=== PATIENT | female | born 1990 | race Asian ===

== ENCOUNTER 2021-11-27 14:32 | Outpatient (CLI) | payer BC, SELFPAY ==
--- NOTE | ~2021-11-27 | US_ITS ---
EXAMINATION: US OB <=14 wk fetus w TV DATE: 11/27/2021 15:58 INDICATION: Threatened TECHNIQUE: Real-time pelvic transabdominal and transvaginal ultrasound was performed. COMPARISON: None. FINDINGS: The uterus measures 7.6 x 4.0 x 4.2 cm. No definite intrauterine gestational sac is identi fied. There is a 2 mm endometrial fluid collection of unclear significance, possible early gestationa l sac. The endometrial thickness is 1.5 cm. The right ovary measures 2.8 x 1.9 x 2.1 cm. The left ova ry measures 3.1 x 1.4 x 1.6 cm. There is normal vascular flow in the ovaries. There is a small amount of free fluid in the pelvis. IMPRESSION: 1. of unknown location. Although no definite intrauterine gestational sac is seen, this may be due to early gestation. If the patient is clinically stable, recommend followup with serial beta- hCG and ultrasound. Reviewed, dictated and finalized at location B. ESSING CLERK IMPRESSION: 1. of unknown location. Although no definite intrauterine gestational sac is seen, this may be due to early gestation. If the patient is clinically stable, recommend followup with serial beta-hCG and ultrasound.
== END 2021-11-27 14:33 | disposition home or self-care (01) ==
LOC: ANHIMG 14:34
PROVIDERS: Visit Provider Nurse Practitioner Family
DX: O20.0 Threatened abortion (principal); Z3A.00 Weeks of gestation of pregnancy not specified
CPT/HCPCS: 76801; 76817

== ENCOUNTER 2022-07-25 05:34 | Inpatient (IN) | payer OTHER, SELFPAY ==
[2022-07-25] VITALS (10 sets, daily range): BP systolic 108–133; BP diastolic 64–79; PULSE 72–96; RESP 16–18; TEMP 36.5–37.1; O2SAT 98–100; BMI 23.1
--- NOTE | 2022-07-25 05:34 | LDADM ---
This patient, Julissa Ahmadi, was admitted to Labor/Delivery/Recovery 106 on 07/25/22 at 05:34. Plans for labor, pain management and were discussed with patient. Patient/family oriented to hospital policies and general routines including ID bracelet, bed and alarms, visiting hours, pain management, procedures, bathroom and other care routines, personal items, smoking policy, room service/diet and guest tray routines, infant security routines, and visiting hours. Patient/Family are encouraged to report perceived risks to care and to ask questions if they do not understand what they are told or what they should do. See OBIX for further documentation.
--- OUTSIDE RECORDS SUMMARY | 2022-07-25 06:51 | XMS_ITS ---
:1990 Author Care Team Providers Name Role Phone TAYLOR PHILLIPS CHASE Primary Care Provider [phone] Allergies Code Code System Name Reaction Severity Status Onset NKDA ? Medications Name Status Start Date Stop Date ? ? clomiphene citrate 50 mg tablet Completed ? 07/17/2021 Linzess 290 mcg capsule Completed ? 11/28/19 medroxyprogesterone 10 mg tablet Completed ? 07/17/2021 TAKE 1 TABLET BY MOUTH EVERY DAY FOR 10 DAYS 28 mg iron-800 mcg tablet Active ? Not available Take 1 tablet every day by oral route. Problems Name Status Onset Date Source ? Active 11/27/2021 ? Chronic Constipation Active ? ? Irritable Bowel Syndrome Active ? ? Stomach Cramps Active ? ? Procedures Date Name Performed by ? 08/28/2021 US, Pelvis, Transabdominal + Transvagina l Information not available 11/27/2021 US, Obstetric, 1St Trimester [facility] [address] [place] [address] (Work Place) 12/02/2021 US, Obstetric, 1St Trimester [facility] [address] [place] [address] (Work Place) Notes: none Results Lab Results Date Name Specimen Result Interpretation Description Value Range Status Address ? 11/29/2021 High Human 3763.60 0.00-4.82 Final Lowman Test, Serum Chorionic mIU/mL mIU/mL Re gional or Plasma Gonadotropin
[2022-07-25 07:28] LABS: Basophils Absolute Auto 0.1 K/mm3 (0.0-0.1); Basophils Percent Auto 0.4 % (0.2-1.2); Eosinophils Absolute Auto 0.2 K/mm3 (0-0.3); Eosinophils Percent Auto 1.6 % (0-4.4); Hematocrit 41.4 % (37.0-47.0); Hemoglobin 13.7 g/dL (12.0-15.0); Immature Granulocyte Absolute 0.14 K/mm3 (0.00-0.031); Lymphocytes Absolute Auto 2.08 K/mm3 (0.9-3.2); Lymphocytes Percent Auto 14.8 % (18.3-44.2); Mean Corpuscular HGB Conc 33.1 g/dl (32-36); Mean Corpuscular Hemoglobin 30.7 pg (26-34); Mean Corpuscular Volume 92.8 fl (80-100); Monocytes Absolute Auto 0.8 K/mm3 (0.1-0.6); Monocytes Percent Auto 5.9 % (2.6-8.5); Neutrophils Absolute Auto 10.7 K/mm3 (1.3-6.7); Neutrophils Percent Auto 76.3 % (45.5-73.1); Platelet Count Result 279 k/mm3 (150-375); Red Blood Count 4.46 M/mm3 (4.2-5.4)
[2022-07-25 08:25] LABS: HIV 1/2 Ab P24 Ag Result Negative (Negative)
--- NOTE | 2022-07-25 09:03 | WPDHPUPDATE1 ---
History and Physical Update Update Date/Time: 07/25/22 08:52 History and Physical has been reviewed, including an updated exam of the patient. There are NO changes in the patient's condition. Risks, benefits, and alternatives have been discussed and questions answered. Patient agrees to proceed with procedure. Julissa is a 31yo @ 38.5wks who presented in labor FHT's: 130's/mod shey/ + accels/ no decels - cat 1 TOCO: ctx's q2-4min Cervix: 5/100/0 Membranes: AROM, clear @ 0900 Presentation: cephalic Admit for labor; AROM performed, if contractions space out, would start low dose pitocin Continuous monitoring GBS negative Anesthesia consult PRN pain
[2022-07-25] MEDS: LACTATED RINGERS 1,000 ML 125 ML IV CONT (11:00)
[2022-07-25] MEDS: OXYTOCIN 30 UNITS/NS 500 ML 30 UNITS/500 ML BAG 999 UNITS IV CONT (11:35)
--- NOTE | 2022-07-25 12:09 | PM.OBPRVD ---
OB - Delivery Note Procedure Delivery date: 07/25/22 Delivery augmentation: Rupture of Membranes Delivery monitor: External FHT and External Uterine Route of delivery: Laceration Description: Perineal - 2nd Degree Delivery repair: vicryl Quantitative Blood Loss (ml): 200 Anesthesia type: Local (20cc of lidocaine w/o epi) Disposition: Floor Baby Date of : 07/25/22 Time of : 11:33 Weeks of gestation at delivery: 38 (.5) gender: Female Weight (pounds): 6 Weight (ounces): 14 presentation: vertex position: Left Occiput Anterior Placenta delivery description: Expressed Cord Vessel Description: 3 Vessels and Delayed Cord Clamping score one minute: 9 score five minutes: 9 Narrative: Julissa rapidly progressed to complete dilation. She pushed with good maternal effort for approximately one hour and 15 minutes. She delivered the head over intact perineum. She easily delivered the 's shoulders and body without complication. The infant was immediately placed skin to skin and had spontaneous cry. The mouth and nose were bulb suctioned. Delayed cord clamping was performed. The umbilical cord was then clamped and cut. A segment of cord was collected for cord gases. The remaining cord blood was collected for typing. With Pitocin running and gentle downward traction on the cord, the placenta delivered without complications. Bimanual massage revealed firm uterus with minimal bleeding. She was examined and a second-degree perineal laceration was noted. The laceration was repaired in the normal fashion using 2-0 Vicryl. Bimanual massage was once again performed with good uterine tone, however a small piece of membranes was palpated and removed using ring forceps. Minimal bleeding was noted. Sponge, lap, instrument, and needle counts were correct. Mom and baby were left bonding in the birthing suite in a stable condition. [facility] Delivery Billing Delivery Delivery: Delivery Charge
[2022-07-25] MEDS: IBUPROFEN 600 MG TABLET PO (14:05)
[2022-07-25] MEDS: BENZOCAINE 20% AER SPR (*SP) 56 GM CAN 1 SPRAY TOPICAL (14:16)
[2022-07-25] MEDS: WITCH HAZEL 40 PADS 1 PAD TOPICAL (14:17)
--- NOTE | 2022-07-25 14:26 | PC.NURSE ---
Patient transferred to post room #290 via wheelchair. Support person present. Oriented to unit, room, information board, rooming in, admission packet and security measures. Patient verbalizes understanding.
[2022-07-25] MEDS: ACETAMINOPHEN 325 MG TABLET 650 MG PO (19:00)
[2022-07-26 00:10] VITALS: BP 115/71; PULSE 68; RESP 16; TEMP 36.6; O2SAT 99
[2022-07-26] MEDS: IBUPROFEN 600 MG TABLET PO ×2 (00:38→09:22)
[2022-07-26 04:55] VITALS: BP 109/65; PULSE 65; RESP 16; TEMP 36.6; O2SAT 100
[2022-07-26] MEDS: ACETAMINOPHEN 325 MG TABLET 650 MG PO (05:01)
[2022-07-26 05:06] LABS: Hemoglobin 11.9 g/dL (12.0-15.0)
[2022-07-26 09:23] VITALS: BP 104/56; PULSE 69; RESP 16; TEMP 36.7; O2SAT 97
[2022-07-26] MEDS: DOCUSATE SODIUM 100 MG CAPSULE PO (09:23)
[2022-07-26] MEDS: MULTIVIT/MIN/PREN/FOL AC/IRON TABLET 1 TAB PO (09:23)
--- NOTE | 2022-07-26 10:31 | PM.OBPNVD ---
OB - PN: Subj Subjective Date/time seen: 07/26/22 10:31 Patient comments: no complaints and pain well controlled baby status: doing well OB - PN: Obj Data Labs CBC & Chem 7: 07/26/22 04:57 Labs: Laboratory Results - last 24 hr 07/26/22 04:57 Hgb 11.9 L Hct 36.0 L OB - PN A/P Plan day: 1 Plan: routine care Time Spent With Patient Time: Total time spent is greater than 50% in coordination of care (as documented) at patient's floor/unit and/or counseling patient: Exam : Bimanual exam- vagina & uterus: other (Uterus firm, nt @U)
[2022-07-26 19:20] VITALS: BP 102/58; PULSE 71; RESP 16; TEMP 36.4; O2SAT 100
--- NOTE | 2022-07-27 01:41 | PC.NURSE ---
Daylight Savings Time For Daylight Savings Time Ending in the Fall - Clocks are moved back. For [facility], the time of change occurs at 0200 hrs. Time is taken from the cocktail server. This entry on the patient's chart recognizes the change in time reflected during documentation. Example: 2 entries for vital signs may be charted for 0200 hrs.
[2022-07-27] MEDS: IBUPROFEN 600 MG TABLET PO (08:34)
[2022-07-27] MEDS: DOCUSATE SODIUM 100 MG CAPSULE PO (08:35)
[2022-07-27] MEDS: MULTIVIT/MIN/PREN/FOL AC/IRON TABLET 1 TAB PO (08:35)
[2022-07-27] MEDS: TETANUS,DIPHTHERIA,AC PERTUSSIS ADULT (0.5 ML) BOOSTRIX IM (08:37)
[2022-07-27 08:40] VITALS: BP 107/70; PULSE 60; RESP 16; TEMP 36.1; O2SAT 100
--- NOTE | 2022-07-27 09:30 | PM.OBPNVD ---
OB - PN: Subj Subjective Date/time seen: 07/27/22 09:30 Patient comments: no complaints and pain well controlled baby status: doing well and nursing well OB - PN: Obj Data Labs CBC & Chem 7: 07/26/22 04:57 OB - PN A/P Plan day: 2 Plan: routine care, discharge home and follow up 6 weeks Time Spent With Patient Time: Total time spent is greater than 50% in coordination of care (as documented) at patient's floor/unit and/or counseling patient: Exam : Bimanual exam- vagina & uterus: other (Uterus firm, nt @U)
--- NOTE | 2022-07-27 14:22 | PC.NURSE ---
1200 Used the Language Line to go over D/C Instructions with both parents. Both V/U'd.
[2022-07-28 12:13] LABS: Rapid Plasma Reagin Non-Reactive (NonReactive)
[2022-07-30 10:46] VITALS: BP 114/72; PULSE 76; RESP 16; TEMP 36.7; O2SAT 100
--- NOTE | 2022-07-30 14:00 | PM.OBDSVD ---
DS: Admitting Diagnosis Discharge Date 07/27/22 Admitting Diagnosis SROM Labor DS: Discharge Diagnosis Discharge Diagnosis (1) Normal vaginal delivery: Code(s): O80 - Encounter for full-term uncomplicated delivery Status: Acute OB - DS: Summary OB Procedures : Ultrasound OB Procedures Intrapartum: Spontaneous Vag Delivery OB Procedures: : None Peripartum Data Delivery Method: Natural Vaginal Laceration Description: Perineal - 2nd Degree complications: none Hewitt 1: Gender: Female Disposition of : home Status at Discharge Functional status at discharge: independent ambulation Overall status at discharge: patient is back to baseline Time Spent with Patient Time attestation: Total time spent providing and/or coordinating discharge services: Time spent: Less than 30 minutes Exam Const: General: cooperative, comfortable and no acute distress Orientation/consciousness: patient oriented x3 Resp: Effort & Inspection: normal respiratory effort Auscultation: clear to auscultation bilaterally Cardio: Rate: regular rate GI: Inspection: non-distended GI Palp: No abdominal tenderness and Yes Soft to palpation Auscultation: normal bowel sounds : Other: fundus firm Skin: General skin exam: normal color Neuro: General: patient oriented x3 Extrem: General: normal to inspection Psych: Appearance: grossly normal Affect: normal affect Attitude: cooperative Discharge Plan Discharge Attending physician on discharge: Ana Maria Avery Discharging Clinician: Giovanna Middleton Anticipated Discharge Date/Time: 07/27/22 09:31 Patient Disposition: Home, Self-Care Activity: may shower and pelvic rest Diet: regular Discharge Instructions: Education: Mom and Baby Guide Given to: Mother Follow-Up: Call your delivering provider's office for an appointment to be seen in: 4 Weeks Mom and baby should come to the [facility] for the follow-up appointment. Appointment Date/Time: Saturday, July 30, 2022 at 10:00 am What to expect at your follow-up visit: Physical Assessment Call [phone] if you are unable to keep your appointment time. BREAST CARE: * Wear a snug supportive bra. * For engorgement discomfort: Breast Feeding: * Apply warm moist washcloths * Express milk as needed to relieve engorgement * Wear loose clothing Bottle Feeding: * May apply ice packs * For sore nipples: * Identify correct latch-on * Apply warm moist washcloths before and after nursing * Air dry nipples after nursing * May apply Lansinoh cream to nipples EPISIOTOMY/PERINEAL CARE: * Until bleeding stops, use your corina bottle after urinating * Change your pad frequently throughout the day * You may take sitz baths several times a day (fill your bathtub with warm water and soak for 20 minutes.) Do NOT bathe in the water * No tub baths until seen by your physician - You may shower ACTIVITY: * Rest as much as possible. * Do not exercise or lift anything heavier than your baby (such as laundry or other children.) * Avoid stairs or driving as much as possible. * Do not put anything into the vagina. No douching, tampons, or sexual activity until seen by physician. NOTIFY PHYSICIAN IF YOU HAVE ANY QUESTIONS OR IF ANY OF THE FOLLOWING SYMPTOMS OCCUR: * If your episiotomy or incision becomes red, swollen, or more painful than what you have experienced in the hospital. * If your vaginal bleeding becomes foul smelling. * If your vaginal bleeding becomes more heavy than a period or if your bleeding changes from pink to bright red. However, you may pass an occasional walnut-sized clot once or twice for the first week . * If you experience a sharp, shooting pain in you calves. * If you discover a hard, reddened area on yo
== END 2022-07-27 13:20 | disposition home or self-care (01) | DRG 560 ==
LOC: ANHLDR 06:54 → ANHOB2 07-27 09:32 → ANHLDR 07-30 08:51 → ANHOB2 07-30 08:51
PROVIDERS: Admitting Provider Obstetrics & Gynecology; Visit Provider Obstetrics & Gynecology Gynecology
DX: O70.1 Second degree perineal laceration during delivery (principal); Z23 Encounter for immunization; Z37.0 Single live birth; Z3A.38 38 weeks gestation of pregnancy
CPT/HCPCS: 36415; 85014; 85018; 85025; 86592; 86703; 86850; 86900; 86901; 90471; 90686; 90715; A9270; G0008; G0432; J2590; J7120

== ENCOUNTER 2023-07-15 12:21 | Outpatient (CLI) | payer OTHER, SELFPAY ==
--- NOTE | ~2023-07-15 | MMUS_ITS ---
EXAMINATION: MM diagnostic brenda BI w irvin, US breast BI complete HISTORY: Left breast lump TECHNIQUE: Bilateral full field and spot left ML, MLO and CC 3-D tomosynthesis images were performed and synthetic 2-D images were generated. CAD analysis was submitted and interpreted. High resolution complete bilateral breast ultrasound examination including all 4 quadrants and subareolar areas was p erformed. COMPARISON: None BREAST PARENCHYMAL COMPOSITION: The breasts are extremely dense, which lowers the sensitivity of mamm ography. FINDINGS: MAMMOGRAPHIC FINDINGS: There are scattered bilateral benign-appearing calcifications, more numerous on the left No suspicious mass or architectural distortion, malignant calcification, skin thickening or retractio n is detected. The extremely dense stroma however may obscure masses in either breast. ULTRASOUND: Right breast: No suspicious mass or shadowing is detected Left breast: 12:00 4 cm from nipple: 2.3 mm cyst 9:00 near nipple: Parallel circumscribed hyperechoic solid 8 x 7 x 10 mm mass with through transmissi on posterior enhancement. The sonographic features are benign, with differential diagnosis of lipoma, hamartoma or fibroadenoma. No suspicious mass or shadowing is detected in the left breast. IMPRESSION: 1. Benign findings; no mammographic or sonographic evidence of malignancy 2. Routine annual mammographic screening beginning at age 40 is recommended BI-RADS Category 2: Benign finding(s). Reviewed, dictated and finalized at location A. IMPRESSION: 1. Benign findings; no mammographic or sonographic evidence of malignancy 2. Routine annual mammographic screening beginning at age 40 is recommended BI-RADS Category 2: Benign finding(s).
== END 2023-07-15 12:22 | disposition home or self-care (01) ==
LOC: ANHIMG 12:22
PROVIDERS: Visit Provider Obstetrics & Gynecology
DX: N63.20 Unspecified lump in the left breast, unspecified quadrant (principal); R92.8 Other abnormal and inconclusive findings on diagnostic imaging of breast
CPT/HCPCS: 76641; 77062; 77066; G0279

== ENCOUNTER 2024-10-19 13:17 | Outpatient (CLI) | payer OTHER, SELFPAY ==
--- NOTE | ~2024-10-19 | US_ITS ---
EXAMINATION: US OB <= 14 weeks fetus DATE: 10/19/2024 14:08 INDICATION: Amenorrhea. Positive test. TECHNIQUE: Real-time transabdominal and transvaginal pelvic ultrasound was performed. COMPARISON: None. FINDINGS: TRANSABDOMINAL ULTRASOUND: The uterus measures 15.6 x 10.0 x 11.4 cm. TRANSVAGINAL ULTRASOUND: There is an intrauterine gestational sac. The crown rump length measur es 8.5 cm, which correlates with an estimated gestational age of 14 weeks and 3 day(s) (+/-) 1 week(s ) and 2 day(s). heart motion is identified measuring 155 beats per minute (bpm) by M-mode Doppl er. The ovaries are not visualized. There is no free fluid in the pelvis. IMPRESSION: 1. Single living intrauterine gestation with estimated date of delivery of 04/16/2025. Reviewed, dictated and finalized at location A. HAT FLANGER IMPRESSION: 1. Single living intrauterine gestation with estimated date of delivery of 03/22.
--- OUTSIDE RECORDS SUMMARY | 2024-10-19 14:14 | XMS_ITS | Patient Health Summary ---
Author Organization [facility] Address [address] [place] [address] Care Team Providers Care Computer Network And Systems Engineer Name Role Phone Mattie Marcus MD Primary Care Provider [phone] Note from [facility],non-owned Affiliates and Associated Physician Practices is amultiple site organization consisting of ambulatory clinics and hospital sitesin [place], [place], [place]. This disclosure is being madepursuant to the Care Everywhere program and may not contain all information available regarding this patient. Last updated 18.[facility] Allergies No known active allergies Social History Tobacco Use Types Packs/Day Years Used Date Smoking Tobacco: Never Assessed Sex and Gender Information Value Date Recorded Sex Assigned at Not on file Gender Identity Not on file Sexual Orientation Not on file Procedures * SONOGRAM - COMPLETE(Performed 04/09/2022) Performed for Encounter for anatomic survey (HCC), 23 weeks gestation of (HCC), Abnormal chromosomal and genetic finding on screening mother Results * SONOGRAM - COMPLETE (04/09/2022 11:13 AM CDT) Anatomical Region Laterality Modality Other 04/09/2022 11:1 3 AM CDT Narrative 04/09/2022 12:47 PM CDT ? [facility] ?PHONE: ??FAX: Pat. Name: ?JULISSA DEAL Denisse. No: ?[id number] Study Date: ?? 04/09/2022 ??11:13am , Age: ? 1990, 31 Pregnancies: ?? 2, Para 0 Height: ? 65 in Weight: ? 109 lb LMP: ?10/26/2021 GA by LMP: ?23w4d GA by US: ? 23w4d ?? BALAJI: 08/02/2022 GA Selected: ??23w4d (LMP) BALAJI: ?08/02/2022 Referring MD: Ana Maria Avery MD Nematologist: ??Adriana Feliz RDMS CPT4: ? [id number] BMI: ?18.14 Hist/Ind: ? Anatomy Screen ?Quad Screen + DS ?LR NIPT MEASUREMENTS & AGE ? GROWTH EVALUATION Measurement ??GA ? Range ? Srce %for GA Ratios ----- ---- ------- BPD ??6.0 cm 24w3d (92j6d-41y2d) Hadl BPD 74% FL/BPD 0.67 (0.71 - 0.87* HC ??21.1 cm 23w1d (69k4l-70c1y) Hadl HC ??17% FL/AC ??0.21 (0.20 - 0.24) AC ??19.0 cm 23w5d (26w6t-87s6l) Hadl AC ??45% HC/AC ??1.11 (1.03 - 1.22) FL ?? 4.0 cm 23w0d (48s5d-95r0l) Hadl FL ??20% CI ? 0.82 (0.70 - 0.86) HL ?? 4.0 cm 24w1d (89i4h-09q7f) Eric HL ??60% GA for sonogram 23w4d (41t0z-22c2p) ?? Weight Estimate: based on (BPD,HC,AC,FL) Avg ?Weight: 592 gm (506-679gm) Hadloc ? : 1lbs, 4oz ? Normal: 630 gm (472-787gm) Hadloc ? Wt% ? 33% for 23w4d Cervix: ??Length: 3.8 cm ??Approach: transvaginal Heart Rate: 162 bpm Amniotic Fluid Index: 05.2cm (Deepest Pocket) EVAL, PLACENTA Presentation: cephalic Umbilical Cord: 3 Vessels Placenta: anterior Heart Rate: 162 bpm Amniotic Fluid Volume: normal Anatomy!Normal!Abnormal!Suboptimal!Prev. Seen!Comments Cranium ?! ?? x ??! ?! ?! ?! Mdl (CSP/Thal! ?? x ??! ?! ?! ?! Ventricles ?? ! ?? x ??! ?! ?! ?! Choroid Plexu! ?? x ??! ?! ?! ?! Cerebellum ?? ! ?? x ??! ?! ?! ?! Cerebellar Ve! ?? x ??! ?! ?! ?! Cisterna M. ??! ?? x ??! ?! ?! ?! Nuchal Fold ??! ?? x ??! ?! ?! ?! Orbits ? ! ?? x ??! ?! ?! ?! Profile ?! ?? x ??! ?! ?! ?! Nasal Bone ?? ! ?? x ??! ?! ?! ?! Lip ?! ?? x ??! ?! ?! ?! Maxilla ?! ?? x ??! ?! ?! ?! Mandible ? ! ?? x ??! ?! ?! ?! Neck ? ! ?? x ??! ?! ?! ?! Spine ?! ?? x ??! ?! ?! ?! Lungs ?! ?? x ??! ?! ?! ?! 4 Chamber Hea! ?? x ??! ?! ?! ?! LVOT ? ! ?? x ??! ?! ?! ?! RVOT ? ! ?? x ??! ?! ?! ?! 3 Vessel View! ?? x ??! ?! ?! ?! 3 Vessel Trac! ?? x ??! ?! ?! ?! Cross-over ?? ! ?? x ??! ?! ?! ?! Ductal Arch ??! ?? x ??! ?! ?! ?! Aortic Arch ??! ?? x ??! ?! ?! ?! Caval View ?? ! ?? x ??! ?! ?! ?! Situs ?! ?? x ??! ?! ?! ?! Diaphragm ?! ?? x ??! ?! ?! ?! Stomach ?! ?? x ??! ?! ?! ?! Liver ?! ?? x ??! ?! ?! ?! Bowel ?! ?? x ??! ?! ?! ?! Kidneys ?! ?? x ??! ?! ?! ?! Bladder ?! ?? x ??! ?! ?! ?! 3 Vessel Cord! ?? x ??! ?! ?! ?! Cord In! ?? x ??! ?! ?! ?! Upper Extremi! ?? x ??! ?! ?! ?! Hands ?! ?? x ??! ?! ?! ?! Lower Extremi! ?? x ??! ?! ?! ?! Feet ? ! ?? x ??! ?! ?! ?! External Ceci! ?? x ??! ?! ?! ?!Female Placental Cor! ?? x ??! ?! ?! ?! CLINICAL SUMMARY Study Number: 2 ?? A single fetus is seen in cephalic presentation. ??The measurements today are consistent with appropriate size for the BALAJI provided. ??The BALAJI is based on LMP and a prior ultrasound. ??The amniotic fluid volume is within normal limits. ?? IMPRESSION: Single, live intrauterine at 23w4d ?? size is consistent with established gestational age ?? Amniotic fluid volume: within normal limits ?? Reassuring transvaginal cervical length ?? No major malformations were seen within the limitations of ultrasound RECOMMEND: Ultrasound as clinically indicated Thank you for allowing us the opportunity to care for your patient Hermann Zhu MD <Electronic Signature> ??04/09/2022 12:47pm Ana Maria Avery MD [facility] ORDERABLES Care Teams Computer Network And Systems Engineer Relationship Specialty Start Date End Date Mattie Marcus MD [address] [place] [address] PCP - General Internal Medicine 12/20/19
--- OUTSIDE RECORDS SUMMARY | 2024-10-19 14:14 | XMS_ITS | Clinical Summary ---
Author Organization [facility] Address [address] [place] [address] Care Team Providers Care Bottom Man Name Role Phone Mattie Marcus MD Primary Care Provider [phone] Source Comments [facility],non-owned Affiliates and Associated Physician Practices is amultiple site organization consisting of ambulatory clinics and hospital sitesin [place], [place], [place] and [place]. This disclosure is being madepursuant to the Care Everywhere program and may not contain all information available regarding this patient. Last updated 18.[facility] Allergies No known active allergies Social History Tobacco Use Types Packs/Day Years Used Date Smoking Tobacco: Never Assessed Sex and Gender Information Value Date Recorded Sex Assigned at Not on file Gender Identity Not on file Sexual Orientation Not on file Plan of Treatment Health Maintenance Due Date Last Done Comments PAP SMEAR 1989 HIV SCREENING 2004 HEPATITIS C SCREENING 09/17/2007 DTAP/TDAP/TD VACCINES (1 - Tdap) 2008 HEPATITIS B VACCINE (1 of 3 - 19+ 3-dose series) 2008 COVID-19 VACCINE ( - 2023-2 5 season) 2024 INFLUENZA VACCINE (#1) 2024 DEPRESSION SCREENING 2024 ZOSTER VACCINE (1 of 2) 2039 HIB VACCINE Aged Out No longer eligi ble based on patient's age to complete this topic HPV VACCINE Aged Out No longer eligi ble based on patient's age to complete this topic MENINGOCOCCAL (Group B) VACCINE Aged Out No longer eligible based on patient's age to complete this topic MENINGOCOCCAL VACCINE Aged Out No sumit marty eligible based on patient's age to complete this topic PNEUMOCOCCAL VACCINE Aged Out No long er eligible based on patient's age to complete this topic Care Teams Bottom Man Relationship Specialty Start Date End Date Mattie Marcus MD [address] [place] [address] PCP - General Internal Medicine 12/20/19
--- OUTSIDE RECORDS SUMMARY | 2024-10-19 14:14 | XMS_ITS | Referral Summary ---
Author Organization [facility] Address [address] [place] [address] Care Team Providers Care Cut Off Worker Name Role Phone Mattie Marcus MD Primary Care Provider [phone] Source Comments [facility],non-owned Affiliates and Associated Physician Practices is amultiple site organization consisting of ambulatory clinics and hospital sitesin [place], [place], [place] and [place]. This disclosure is being madepursuant to the Care Everywhere program and may not contain all information available regarding this patient. Last updated 18.[facility] [employer] Allergies No known active allergies Social History Tobacco Use Types Packs/Day Years Used Date Smoking Tobacco: Never Assessed Sex and Gender Information Value Date Recorded Sex Assigned at Not on file Gender Identity Not on file Sexual Orientation Not on file Plan of Treatment Not on file Care Teams Cut Off Worker Relationship Specialty Start Date End Date Mattie Marcus MD [address] [place] [address] PCP - General Internal Medicine 12/20/19
== END 2024-10-19 13:18 | disposition home or self-care (01) ==
PROVIDERS: Visit Provider Obstetrics & Gynecology
DX: N91.2 Amenorrhea, unspecified (principal)
CPT/HCPCS: 76801

== ENCOUNTER 2025-03-30 10:08 | Inpatient (IN) | payer OTHER, SELFPAY ==
[2025-03-30] VITALS (39 sets, daily range): BP systolic 84–146; BP diastolic 56–85; PULSE 72–122; RESP 14–16; TEMP 36.6–37.3; O2SAT 98; BMI 24.5
--- OUTSIDE RECORDS SUMMARY | 2025-03-30 10:19 | XMS_ITS | Clinical Summary ---
Author Organization [facility] Address [address] [place] [address] Care Team Providers Care Meat Team Lead Name Role Phone Mattie Marcus MD Primary Care Provider [phone] Source Comments [facility],non-owned Affiliates and Associated Physician Practices is amultiple site organization consisting of ambulatory clinics and hospital sitesin [place], [place], [place] and [place]. This disclosure is being madepursuant to the Care Everywhere program and may not contain all information available regarding this patient. Last updated 18.[facility] [employer] Allergies No known active allergies Medications * Be aware that medications may not be up to date on this document. Alwaysverify current medications with the patient. Vit-DSS-Fe Fum-FA ( vitamin with iron) tablet Take 1 (one) tablet by mouth once daily Active Active Problems Problem Noted Date Diagnosed Date Encounter for anatomic survey 11/30/2024 AMA (advanced maternal age) multigravida 35+, second trimester 11/30/2024 Estimated Date of Delivery Comme nts Yes 04/14/2025 Based on last me nstrual period of 07/08/2024 Encounters Date Type Department Care Team Description 03/17/2025 7:24 AM CDT - 03/17/2025 11:59 PM CDT Hospital Encounter [facility] Women's Health Maternal & Care [address] [place] [id number] Sandrine Martinez MD Discharge Disposition: Home or Self Care 02/17/2025 7:16 AM CDT - 02/17/2025 11:59 PM CDT Hospital Encounter [facility] & [facility] [address] [place] [address] Foreign Mehta MD Discharge Disposition: Home or Self Care 01/16/2025 7:30 AM CDT - 01/16/2025 11:59 PM CDT Hospital Encounter [facility] [address] [place] [phone] Head, MD Gardenia Sandoval Debra A, MD Discharge Disposition: Home or Self Care from Last 3 Months Social History Tobacco Use Types Packs/Day Years Used Date Smoking Tobacco: Never Smokeless Tobacco: Never Tobacco Cessation:Counseling Given: Not Answered Alcohol Use Standard Drinks/Week Comments Never 0 (1 standard drink = 0.6 oz pur e alcohol) Estimated Date of Delivery Comme nts Yes 04/14/2025 Based on last me nstrual period of 07/08/2024 Sex and Gender Information Value Date Recorded Sex Assigned at Not on file Legal Sex Female 1:52 PM CDT Gender Identity Not on file Sexual Orientation Not on file Last Filed Vital Signs Vital Sign Reading Time Taken Comments Blood Pressure 105/69 11/30/2024 8:42 AM CDT Pulse 72 11/30/2024 8:42 AM CDT Temperature - - Respiratory Rate - - Oxygen Saturation - - Inhaled Oxygen Concentration - - Weight 55.8 kg (123 lb) 11/30/2024 8:42 AM CDT Height - - Body Mass Index - - Plan of Treatment Health Maintenance Due Date Last Done Comments HIV SCREENING 2004 HEPATITIS C SCREENING 09/17/2007 DTAP/TDAP/TD VACCINES (1 - Tdap) 2008 HEPATITIS B VACCINE (1 of 3 - 19+ 3-dose series) 2008 PAP SMEAR 2010 COVID-19 VACCINE (2023-2 5 season) 2024 DEPRESSION SCREENING 2024 OB-ONE HOUR GLUCOSE 01/06/2025 OB-TDAP CURRENT 01/13/2025 OB-RHOGAM INJECTION 01/20/2025 OB-GROUP B STREP SCREEN 03/10/2025 INFLUENZA VACCINE (#1) 2025 ZOSTER VACCINE (1 of 2) 2039 HIB VACCINE Aged Out No longer eligi ble based on patient's age to complete this topic HPV VACCINE Aged Out No longer eligi ble based on patient's age to complete this topic MENINGOCOCCAL (Group B) VACC INE SHARED DECISION-MAKING Aged Out No longer eligibl e based on patient's age to complete this topic MENINGOCOCCAL GROUPS A/C/Y/W VACCINE Aged Out No longer eligible b ased on patient's age to complete this topic PNEUMOCOCCAL VACCINE Aged Out No long er eligible based on patient's age to complete this topic Respiratory Syncytial Virus (RSV) Vaccine Pt: or over 60 yrs (No Doses Required) Completed Procedures Procedure Name Priority Date/Time Associated Diagnosis Comments SONOGRAM - COMPLETE Routine 03/17/2025 7:27 AM CDT AMA (advanced maternal age) multigravida 35+, second trimester (HCC) Encounter for ultrasound to assess growth (HCC) 35 weeks gestation of (HCC) SONOGRAM - COMPLETE Routine 02/17/2025 7:25 AM CDT Encounter for anatomic survey (HCC) AMA (advanced maternal age) multigravida 35+, second trimester (HCC) 20 weeks gestation of (HCC) SONOGRAM - COMPLETE Routine 01/16/2025 7:40 AM CDT Encounter for anatomic survey (HCC) AMA (advanced maternal age) multigravida 35+, second trimester (HCC) 20 weeks gestation of (HCC) from Last 3 Months Results * Sonogram - Complete (03/17/2025 7:27 AM CDT) Only the most recent of3 resultswithin the time period is included. Linked Results Indication ======== Anatomy Screen Completed AMA History ====== OB History 2. Para 1 [id number] 1. live 2021. Gest. age 38 w + 5 d. Weight 2,721 g. Sex of child: female. Details: Vaginal delivery Lab Tests Test Date Result NIPT Low risk, Male Maternal Assessment Physical Exam Height 165 cm, 5 ft 5 in. Weight 65 kg, 144 lb. Initial weight 52 kg, 114 lb. BMI 23.96 kg/m . Initial BMI 18.97 kg/m . Weight gain 14 kg, 30 lb Method ====== Transabdominal ultrasound. View: Sufficient ========= Mejia . Number of fetuses: 1 Dating ====== Date Details Gest. age BALAJI LMP 07/08/2024 36 w + 0 d 04/14/2025 Stated BALAJI 36 w + 0 d 04/14/2025 U/S 03/17/2025 based upon AC, BPD, Femur, HC 37 w + 2 d 04/05/2025 Assigned dating based on the LMP, selected on 11/30/2024 36 w + 0 d 04/14/2025 General Evaluation Cardiac activity present. FHR 141 bpm. Presentation: cephalic Placenta: Placental site: anterior Amniotic fluid: Amount of AF: normal. MVP 8.7 cm. TAIWO 20.2 cm. Q1 8.7 cm, Q2 1.4 cm, Q3 4.6 cm, Q4 5.5 cm Biometry BPD 92.6 mm 37w 4d 92% Hadlock HC 334.8 mm 38w 2d 75% Hadlock AC 329.8 mm 36w 6d 83% Hadlock Femur 71.2 mm 36w 3d 58% Hadlock Humerus 62.0 mm 35w 6d 66% Nelia HC / AC 1.02 Weight Calculation: EFW 3,097 g 78% Hadlock EFW (lb,oz) 6 lb 13 oz EFW by Hadlock ([id number]) appropriate Growth Overview Exam date GA BPD (mm) HC (mm) AC (mm) FL (mm) HL (mm) EFW (g) 11/30/2024 20w 5d 48.5 47% 182.3 37% 162.7 65% 32.8 26% 34.4 82% 379 50% 01/16/2025 27w 3d 70.4 67% 256.3 34% 237.2 61% 53.4 63% 48.9 80% 1179 65% 02/17/2025 32w 0d 81.8 68% 309.5 80% 285.1 65% 62 40% 56.7 76% 2020 60% 03/17/2025 36w 0d 92.6 92% 334.8 75% 329.8 83% 71.2 58% 62 66% 3097 78% Anatomy The following structures appear normal: Abdomen Stomach. Kidneys. Bladder. sex: male. Impression ========= Single, live, intrauterine at 36w 0d The size is appropriate. - interval growth is appropriate. The amniotic fluid volume is normal. No major malformations were seen within the limits of ultrasound. Comment ======== ultrasound alone cannot detect all structural, genetic, or functional , placental, or maternal abnormalities Follow-up ======== Follow up as clinically indicated. Coding ====== Procedures 65091: US Preg Uterus Follow Up [employer] PACS Anatomical Region Laterality Modality Other 03/17/2025 7:27 AM CDT Ana Maria Avery MD [facility] ORDERABLES Edited Result - Final from Last 3 Months Insurance [facility]TER [facility] Care Teams Meat Team Lead Relationship Specialty Start Date End Date Mattie Marcus MD [address] [place] [id number] PCP - General Internal Medicine 12/20/19
--- OUTSIDE RECORDS SUMMARY | 2025-03-30 11:07 | XMS_ITS | Clinical Summary ---
Author Organization [facility] Address [address] [place] [address] Care Team Providers Care Reinforcing Steel Machine Operator Name Role Phone Mattie Marcus MD Primary Care Provider [phone] Source Comments [facility],non-owned Affiliates and Associated Physician Practices is amultiple site organization consisting of ambulatory clinics and hospital sitesin [place], [place], [place] and [place]. This disclosure is being madepursuant to the Care Everywhere program and may not contain all information available regarding this patient. Last updated 18.[facility] [employer] Allergies No known active allergies Medications * [...] - 03/17/2025 11:59 PM CDT Hospital Encounter [facility] Women's Health Maternal & Care [address] [place] [id number] Sandrine Martinez MD Discharge Disposition: Home or Self Care 02/17/2025 7:16 AM CDT - 02/17/2025 11:59 PM CDT Hospital Encounter [facility] M[facility] & [facility] [address] [place] [address] Foreign Mehta MD Discharge Disposition: Home or Self Care 01/16/2025 7:30 AM CDT - 01/16/2025 11:59 PM CDT Hospital Encounter [facility] M[facility] & Care [address] [place] [phone] Head, MD Gardenia Sandoval Debra A, MD [...] History ====== OB History 2. Para 1 [id number] 1. live 2021. Gest. age 38 w [...] 6 lb 13 oz EFW by Hadlock ([id number]) appropriate Growth Overview Exam date GA BPD [...] up as clinically indicated. Coding ====== Procedures 50520: US Preg Uterus Follow Up [employer] PACS Anatomical Region Laterality Modality Other 03/17/2025 7:27 AM CDT Ana Maria Avery MD [facility] ORDERABLES Edited Result - Final from Last 3 Months Insurance [facility]TER [facility] Care Teams Reinforcing Steel Machine Operator Relationship Specialty Start Date End Date Mattie Marcus MD [address] [place] [id number] PCP - General Internal Medicine 12/20/19
--- NOTE | 2025-03-30 11:51 | P.HP_ITS ---
H&P: HPI History of Present Illness Date/Time: 03/30/25 11:51 Chief Complaint: contractions Narrative: Julissa is a 34yo @ 37.4wks who presented to L&D with active contractions. She has had regular care and at her visit this week was found to be 5cm; was 6cm on arrival and ana maria regularly. She is wanting an epidural. She denies any VB or LOF. Her is complicated by: - Georgian speaking - AMA; MFM referral, nipt pending - GBS + will need abx @ delivery Review of Systems Constitutional: Constitutional: Denies chills, Denies fever(s) and Denies headache(s) Eyes: Eyes: Denies change in vision ENT: Denies headache(s) Cardiovascular: Cardiovascular: Denies chest pain and Denies dyspnea Respiratory: Respiratory: Denies dyspnea Gastrointestinal: Gastrointestinal: Reports abdominal pain Genitourinary: Genitourinary: Denies abnormal vaginal bleeding, Reports pelvic pain and Denies vaginal discharge Neurologic: Denies headache(s) Psychiatric: Psychiatric: Denies anxiety and Denies depression [facility] Family History Family History Other Patient denies significant medical history Social History Social History Smoking status: Never smoker Second hand tobacco smoke exposure: No Alcohol intake: never Substance use: never Substance use type: does not use Do You Feel Safe in your Home?: Yes Lack of Transportation: No Lack of Food: Never True Current Housing: I Have Housing Concerned About Future Housing: No Difficulty Paying Gas/Electric Bills: No Difficulty Paying for Meds: No Currently Unemployed: No Education: High School Diploma/GED Difficulty w/ Childcare or Family Care: No Living arrangements: with family Occupation/Education: occupation Gender identity (if verbalized by the patient): Female Sexual Orientation (if Verbalized by the Patient): Straight or Heterosexual Spiritual care concerns: No Meds Home Medications and Allergies Home Medications ?Medication ?Instructions ?Recorded ?Confirmed ?Type vit 168-iron 27 mg-folic 1 cap PO DAILY 12/26/21 03/28/25 History acid 800 mcg-omega3 235 mg capsule (One-A-Day -1) Allergies Allergy/AdvReac Type Severity Reaction Status Date / Time No Known Allergies Allergy Verified 03/28/25 08:03 Exam Const: General: cooperative, no acute distress and obese Nutritional A ppearance: obese Orientation/consciousness: patient oriented x3 Resp: Effort & Inspection: normal respiratory effort Cardio: Rate: regular rate GI: GI Palp: No abdominal tenderness : Other: FHT's: 140's/ mod shey/ + accels/ no decels - cat 1 TOCO: ctxs q4-7min Cervix: 6/80/-2 Membranes: intact Presentation: cephalic Skin: General skin exam: normal color Neuro: General: patient oriented x3 Extrem: General: normal to inspection Psych: Appearance: grossly normal Affect: normal affect Attitude: cooperative Assessment and Plan Assessment and plan (1) Active labor at term: Status: Acute Plan - Admitted in labor - Low dose pitocin per protocol if contractions space out - Continuous monitoring - GBS positive; ampicillin - Anesthesia consult for pain
[2025-03-30 12:22] LABS: Hematocrit 40.7 % (37.0-47.0); Hemoglobin 12.9 g/dL (12.0-15.0); Immature Granulocyte Percent A 0.6 % (0-0.5); Lymphocytes Absolute Auto 1.84 K/mm3 (0.9-3.2); Mean Corpuscular HGB Conc 31.7 g/dl (32-36); Mean Corpuscular Hemoglobin 28.4 pg (26-34); Mean Corpuscular Volume 89.5 fl (80-100); Nucleated Red Blood Cells Absolute Auto 0.000 K/mm3 (0.0-0.012); Nucleated Red Blood Cells Perc 0.0 % (0.0-0.2); Platelet Count Result 361 k/mm3 (150-375); Red Blood Count 4.55 M/mm3 (4.2-5.4); White Blood Count 10.8 K/mm3 (4.5-10.0)
[2025-03-30] MEDS: LACTATED RINGERS 1,000 ML 125 ML IV CONT ×2 (12:31→19:17)
[2025-03-30] MEDS: AMPICILLIN SODIUM 2 GM in SODIUM CHLORIDE 0.9% IV 100 ML 200 ML IVPB (12:33)
--- NOTE | 2025-03-30 12:51 | P.PNAN_ITS ---
Anes - Eval Pre Procedure Procedure: Labor epidural Date/Time: 03/30/25 12:51 Surgeon: Bennie Preop Diagnosis: Pain during labor Pre Op Diagnosis: Labor Patient Data Age: 34 Gender: F Height: Weight: Last Vital Signs Pulse 80 03/30/25 12:45 BP 103/66 03/30/25 12:45 Allergies Allergy/AdvReac Type Severity Reaction Status Date / Time No Known Allergies Allergy Verified 03/28/25 08:03 Home Medications ?Medication ?Instructions ?Recorded ?Confirmed ?Type vit 168-iron 27 mg-folic 1 cap PO DAILY 12/26/21 03/28/25 History acid 800 mcg-omega3 235 mg capsule (One-A-Day -1) Laboratory Tests 03/30/25 12:12 WBC 10.8 H K/mm3 (4.5-10.0) RBC 4.55 M/mm3 (4.2-5.4) Hgb 12.9 g/dL (12.0-15.0) Hct 40.7 % (37.0-47.0) MCV 89.5 fl (80-100) MCH 28.4 pg (26-34) MCHC 31.7 L g/dl (32-36) RDW 15.2 H % (11.5-14.5) Plt Count 361 k/mm3 (150-375) MPV 9.5 fl (7.4-10.4) Immature Gran % (Auto) 0.6 H % (0-0.5) Neut % (Auto) 76.2 H % (45.5-73.1) Lymph % (Auto) 17.0 L % (18.3-44.2) [place] % (Auto) 5.4 % (2.6-8.5) Eos % (Auto) 0.4 % (0-4.4) Baso % (Auto) 0.4 % (0.2-1.2) Lymph # (Auto) 1.84 K/mm3 (0.9-3.2) [place] # (Auto) 0.6 K/mm3 (0.1-0.6) Eos # (Auto) 0.0 K/mm3 (0-0.3) Baso # (Auto) 0.0 K/mm3 (0.0-0.1) Abs Immat Gran (auto) 0.07 H K/mm3 (0.00-0.031) Absolute Neuts (auto) 8.3 H K/mm3 (1.3-6.7) Absolute Nucleated RBC 0.000 K/mm3 (0.0-0.012) Nucleated RBC % 0.0 % (0.0-0.2) Patient hx anesthesia problems: none Family hx anesthesia problems: none Results Review: All pre-operative results and documents have been reviewed as part of the pre- operative evaluation. [facility] Family History Family History Other Patient denies significant medical history Social History Social History Smoking status: Never smoker Second hand tobacco smoke exposure: No Alcohol intake: never Substance use: never Substance use type: does not use Do You Feel Safe in your Home?: Yes Lack of Transportation: No Lack of Food: Never True Current Housing: I Have Housing Concerned About Future Housing: No Difficulty Paying Gas/Electric Bills: No Difficulty Paying for Meds: No Currently Unemployed: No Education: High School Diploma/GED Difficulty w/ Childcare or Family Care: No Living arrangements: with family Occupation/Education: occupation Gender identity (if verbalized by the patient): Female Sexual Orientation (if Verbalized by the Patient): Straight or Heterosexual Spiritual care concerns: No Exam Day of Procedure 03/30/25 12:51 Patient weight: overweight Heart: regular rate and rhythm Lungs: clear to auscultation Airway: Mallampati scale class II Neurological: alert and oriented
[2025-03-30 13:12] LABS: Syphilis IgG/IgM Antibody Non-Reactive (Nonreactive)
--- NOTE | 2025-03-30 13:17 | LDADM ---
This patient, Julissa Ahmadi, was admitted to OB Labor Room 103 on 03/30/25 at 10:08. Plans for labor, pain management and were discussed with patient. Patient/family oriented to hospital policies and general routines including ID bracelet, bed and alarms, visiting hours, pain management, procedures, bathroom and other care routines, personal items, smoking policy, room service/diet and guest tray routines, security routines, and visiting hours. Patient/Family are encouraged to report perceived risks to care and to ask questions if they do not understand what they are told or what they should do. See OBIX for further documentation.
--- NOTE | 2025-03-30 13:17 | PC.NURSE ---
Translation line was used to admit patient and explain plan of care. Pt informed we can use the translation line any time she has any questions- verbalizes understanding. Preadmission information that was originally charted on 03/10/25 at 1330 by Andree Love RN was copied to chart.
--- NOTE | 2025-03-30 16:29 | PM.OBPNLAB ---
Pain Control Date/time seen: 03/30/25 16:29 Pain control: tolerating well Comments: wanting epidural Pelvic Exam Dilation (cm): 7 (-8) Effacement (%): 80 station: -2 Amniotic membrane status: Ruptured (thick med, 1627) Contractions Monitor mode: External Contraction frequency: 2 (-4) Status status: Category l Assessment and Plan Assessment: active labor Plan: continuous present management
[2025-03-30] MEDS: AMPICILLIN SODIUM 1 GM in SODIUM CHLORIDE 0.9% IV 50 ML 100 ML IVPB ×2 (16:53→19:17)
[2025-03-30] MEDS: OXYTOCIN 30 UNITS/NS 500 ML 30 UNITS/500 ML BAG IV CONT (18:45)
[2025-03-30] MEDS: OXYTOCIN 30 UNITS/NS 500 ML 30 UNITS/500 ML BAG 999 UNITS IV CONT (20:00)
[2025-03-30] MEDS: fentaNYL CITRATE INJ (*CRX) 100 MCG/2 ML VIAL 50 MCG IV PUSH (20:01)
--- NOTE | 2025-03-30 20:18 | P.PCNOB_ITS ---
OB - Vaginal Delivery Note Procedure Delivery date: 03/30/25 Events: Positive Group B Strep (GBS) Delivery augmentation: Rupture of Membranes and Pitocin Delivery monitor: External FHT and External Uterine Route of delivery: Episiotomy description: None Laceration Description: Perineal - 2nd Degree (but skin laceration down to rectum) Delivery repair: vicryl Specimen: Yes (placenta) Quantitative Blood Loss (ml): 200 Anesthesia type: Local (20cc of 1% lido plain) Disposition: Floor Complications: No immediate complications [place] Baby Date of : 03/30/25 Time of : 19:48 Gestational Age by Date: 37 (4) Infant gender: Male Weight (pounds): 7 Weight (ounces): 13 presentation: vertex Placenta delivery description: Expressed Cord Vessel Description: 3 Vessels score one minute: 8 score five minutes: 9 Narrative: Costa rapidly progressed from 7 to complete dilation. We are attempting to get an epidural but patient rapidly delivered precipitously. She delivered the male infant prior to my arrival with the nursing and pediatric staff. He delivered without complication. I arrived at approximately 2-3 minutes of life where he was on mom with good color tone and cry. I doubly clamped the umbilical cord and the dad cut the cord. A segment of the cord was collected for cord gases. The remaining cord blood was collected for typing. With Pitocin running and gentle downward traction on the cord, the placenta delivered without complications. Fundal massage revealed good tone with minimal bleeding. She was examined and a large second-degree perineal laceration was identified. The rectal sphincter was easily identified but noted to be completely intact. The skin incision did continued down to her anus. She was anesthetized with 1% lidocaine and she was also given fentanyl 50 mcg IV for better pain control. The laceration was repaired in the normal fashion using 2-0 Vicryl. Good hemostasis and good reapproximation was noted. Rectal exam was performed and good tone was noted and no stitches were identified. Sponge, lap, instrument, and needle counts were correct at the end of the procedure. Mom and baby were left bonding in the birthing suite in stable condition.
[2025-03-30] MEDS: OXYTOCIN 30 UNITS/NS 500 ML 30 UNITS/500 ML BAG 125 UNITS IV CONT (20:33)
[2025-03-30] MEDS: IBUPROFEN 600 MG TABLET PO (22:07)
[2025-03-30] MEDS: BENZOCAINE 20% AER SPR (*SP) 56 GM CAN 1 SPRAY TOPICAL (22:07)
[2025-03-30] MEDS: WITCH HAZEL 40 PADS 1 PAD TOPICAL (22:08)
[2025-03-31] MEDS: ACETAMINOPHEN 325 MG TABLET 650 MG PO ×4 (00:13→22:23)
--- NOTE | 2025-03-31 00:45 | S_PTH ---
PATIENT: Julissa Ahmadi [facility] LOC: ANHOB2 U#:[id number] AGE/SX: 34/F ROOM: 277 RE03/30/[address]: Ana Maria Avery MD : 1990 BED: 00 DIS: 04/01/2025 SPEC #: [id number] RECD: 04/03/25 08:43 STATUS: LEONARD REQ #: [id number] AUBREY: 03/31/25 00:[address]: Ana Maria Avery DEPT: [facility] Surgical RECD BY: Noy Gillette ENTERED: 04/03/25 08:43 SP TYPE: Surgical OTHR DR: UNKNOWN,DOCTOR Tissues: A - Placenta Procedures: Hematoxylin and Eosin Stain Gross and Microscopic Level 5
[2025-03-31 04:20] VITALS: BP 98/60; PULSE 77; RESP 16; TEMP 37; O2SAT 99
[2025-03-31 05:07] LABS: Hematocrit 35.8 % (37.0-47.0); Hemoglobin 11.3 g/dL (12.0-15.0); Mean Corpuscular HGB Conc 31.6 g/dl (32-36); Mean Corpuscular Hemoglobin 28.8 pg (26-34); Mean Corpuscular Volume 91.3 fl (80-100); Platelet Count Result 298 k/mm3 (150-375); Red Blood Count 3.92 M/mm3 (4.2-5.4); White Blood Count 17.6 K/mm3 (4.5-10.0)
--- NOTE | 2025-03-31 07:14 | P.PNOB_ITS ---
OB - PN: Subj Subjective Date/time seen: 03/31/25 07:14 Narrative: PPD#1 Julissa reports doing well today. 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 Her pain is controlled. She is tolerating regular diet, voiding, passing gas, and ambulating without issues. She is breast feeding. She would like her son circumcised. OB - PN: Obj Data Labs 03/31/25 02:58 Labs: Laboratory Results - last 24 hr 03/30/25 03/30/25 03/31/25 12:02 12:12 02:58 WBC 10.8 H 17.6 H RBC 4.55 3.92 L Hgb 12.9 11.3 L Hct 40.7 35.8 L MCV 89.5 91.3 MCH 28.4 28.8 MCHC 31.7 L 31.6 L RDW 15.2 H 15.2 H Plt Count 361 298 MPV 9.5 9.8 Immature Gran % (Auto) 0.6 H Neut % (Auto) 76.2 H Lymph % (Auto) 17.0 L [place] % (Auto) 5.4 Eos % (Auto) 0.4 Baso % (Auto) 0.4 Lymph # (Auto) 1.84 [place] # (Auto) 0.6 Eos # (Auto) 0.0 Baso # (Auto) 0.0 Abs Immat Gran (auto) 0.07 H Absolute Neuts (auto) 8.3 H Absolute Nucleated RBC 0.000 Nucleated RBC % 0.0 Syphilis IgG/IgM Ab Non-reactive Blood Type B Positive Antibody Screen Negative OB - PN A/P Assessment and Plan (1) Normal vaginal delivery of second : Code(s): O80 - Encounter for full-term uncomplicated delivery Status: Acute Plan Plan: routine care Comments: - PO pain meds - Regular diet - Ambulation and hydration encouraged - Continue putting baby to breast q2-3hr Time Spent With Patient Time: Total time spent is greater than 50% in coordination of care (as documented) at patient's floor/unit and/or counseling patient: Review of Systems 2 Constitutional: Constitutional: Denies chills, Denies fever(s) and Denies headache(s) Eyes: Eyes: Denies change in vision ENT: Denies dizziness and Denies headache(s) Cardiovascular: Cardiovascular: Denies chest pain, Denies palpitations and Denies dyspnea Respiratory: Respiratory: Denies cough and Denies dyspnea Gastrointestinal: Gastrointestinal: Denies nausea and Denies vomiting Neurologic: Denies dizziness and Denies headache(s) Endocrine: Endocrine: Denies palpitations Exam 2 Const: General: cooperative, comfortable and no acute distress O rientation/consciousness: patient oriented x3 Resp: Effort & Inspection: normal respiratory effort Auscultation: clear to auscultation bilaterally Cardio: Rate: regular rate GI: Inspection: non-distended GI Palp: No abdominal tenderness and Yes Soft to palpation Auscultation: normal bowel sounds : Other: fundus firm Skin: General skin exam: normal color Neuro: General: patient oriented x3 Extrem: General: normal to inspection Psych: Appearance: grossly normal Affect: normal affect Attitude: c ooperative
[2025-03-31] MEDS: IBUPROFEN 600 MG TABLET PO ×3 (07:20→22:23)
[2025-03-31 08:25] VITALS: BP 102/67; PULSE 73; RESP 18; TEMP 36.7; O2SAT 99
[2025-03-31 12:50] VITALS: BP 125/68; PULSE 80; RESP 16; TEMP 37.2; O2SAT 97
[2025-03-31 19:20] VITALS: BP 95/65; PULSE 71; RESP 18; TEMP 36.8; O2SAT 100
[2025-03-31 19:30] VITALS: PULSE 71; RESP 18; O2SAT 100
[2025-03-31 22:45] VITALS: BP 97/52; PULSE 69; RESP 14; TEMP 36.8; O2SAT 100
[2025-04-01] MEDS: ACETAMINOPHEN 325 MG TABLET 650 MG PO (04:30)
[2025-04-01] MEDS: IBUPROFEN 600 MG TABLET PO (04:30)
[2025-04-01 04:48] VITALS: BP 93/60; PULSE 59; RESP 12; TEMP 36.7; O2SAT 100
[2025-04-01 07:30] VITALS: BP 109/67; PULSE 69; RESP 14; TEMP 36.6; O2SAT 98
--- NOTE | 2025-04-01 07:42 | P.DS_ITS ---
DS: Admitting Diagnosis Discharge Date 04/01/25 Admitting Diagnosis active labor at term DS: Discharge Diagnosis Discharge Diagnosis (1) Normal vaginal delivery: Code(s): O80 - Encounter for full-term uncomplicated delivery Status: Acute OB - DS: Summary OB Procedures : Ultrasound OB Procedures Intrapartum: Spontaneous Vag Delivery OB Procedures: : None Peripartum Data Delivery Method: Natural Vaginal Laceration Description: Perineal - 2nd Degree (but skin laceration down to rectum) Episiotomy description: None complications: none [place] 1: Gender: Male Disposition of : home Status at Discharge Functional status at discharge: independent ambulation Overall status at discharge: patient is back to baseline Time Spent with Patient Time attestation: Total time spent providing and/or coordinating discharge services: Exam Const: General: cooperative, healthy appearing, comfortable and no acute distress Orientation/consciousness: patient oriented x3 Resp: Effort & Inspection: normal respiratory effort Auscultation: clear to auscultation bilaterally Cardio: Rate: regular rate GI: Inspection: non-distended GI Palp: No abdominal tenderness and Yes Soft to palpation Auscultation: normal bowel sounds : Other: fundus firm Skin: General skin exam: normal color Neuro: General: patient oriented x3 Extrem: General: normal to inspection Psych: Appearance: grossly normal Affect: normal affect Attitude: cooperative DS: Data Data Completed and Pending Pending studies at discharge: Pending at discharge 03/31/25 00:45 Surgical [PTH] Routine Labs on day of discharge: Labs from last 24 hours 03/31/25 02:58 WBC 17.6 H RBC 3.92 L Hgb 11.3 L Hct 35.8 L MCV 91.3 MCH 28.8 MCHC 31.6 L RDW 15.2 H Plt Count 298 MPV 9.8 Discharge Plan Discharge Attending physician on discharge: Ana Maria Avery Discharging Clinician: Ana Maria Avery Anticipated Discharge Date/Time: 04/01/25 11:00 Patient Disposition: Home Activity: may shower and pelvic rest Diet: regular Discharge Instructions: Education: Mom and Baby Guide Given to: Mother Follow-Up: Call your delivering provider's office for an appointment to be seen in: 4 Weeks Mom and baby should come to the [facility] for the follow-up appointment. Appointment Date/Time: April 03, 2025 at 9:00 am What to expect at your follow-up visit: Blood Pressure Check Physical Assessment Call [phone] if you are unable to keep your appointment time. BREAST CARE: * Wear a snug supportive bra. * For engorgement discomfort: Bottle Feeding: * May apply ice packs PERINEAL CARE: * Until bleeding stops, use your corina bottle after urinating * Change your pad frequently throughout the day * You may take sitz baths several times a day (fill your bathtub with warm water and soak for 20 minutes.) Do NOT bathe in the water * No tub baths until seen by your physician - You may shower ACTIVITY: * Rest as much as possible. * Do not exercise or lift anything heavier than your baby (such as laundry or other children.) * Avoid stairs or driving as much as possible. * Do not put anything into the vagina. No douching, tampons, or sexual activity until seen by physician. NOTIFY PHYSICIAN IF YOU HAVE ANY QUESTIONS OR IF ANY OF THE FOLLOWING SYMPTOMS OCCUR: * If your vaginal bleeding becomes foul smelling. * If your vaginal bleeding becomes more heavy than a period or if your bleeding changes from pink to bright red. However, you may pass an occasional walnut- sized clot once or twice for the first week . * If you experience a sharp, shooting pain in your calves. * If you discover a hard, reddened area on your breast or if you experience flu- like symptoms. DIET: * Eat regular, well-balanced meals. * Drink plenty of fluids daily. If , drink to thirst. Patient Instructions: Vaginal Delivery (DC) Patient Language: [place] Stand Alone Forms: General Discharge Information Follow-up/Referrals: Ana Maria Avery MD [Physician] - 4 Weeks Discharge Medications: New acetaminophen 325 mg Tablet 650 mg PO Q6H PRN (Reason: Mild Pain (1-3) Or Headache) Qty: 60 0RF docusate sodium 100 mg Capsule 100 mg PO BID PRN (Reason: Constipation) Qty: 90 0RF ibuprofen 600 mg Tablet 600 mg PO Q6H PRN (Reason: Cramping) Qty: 40 0RF Continued One-A-Day -1 27 mg iron- 800 mcg-235 mg capsule 1 cap PO DAILY Date of admission: 07/10/25 10:08 Primary Care Provider: UNKNOWN,DOCTOR Admitting Provider: Ana Maria Avery Attending physician on admission: Ana Maria Avery Condition: Stable
--- NOTE | 2025-04-01 09:00 | PC.NURSE ---
Per primary RN, patient intends to bottle feed only. No services needed.
[2025-04-01] MEDS: DOCUSATE SODIUM 100 MG CAPSULE PO (09:02)
[2025-04-01] MEDS: MULTIVIT/MIN/PREN/FOL AC/IRON TABLET 1 TAB PO (09:02)
[2025-04-03 09:42] VITALS: BP 114/68; PULSE 73; RESP 18; TEMP 36.7; O2SAT 100
== END 2025-04-01 14:20 | disposition home or self-care (01) | DRG 560 ==
LOC: ANHOBPP 11:03 → ANHLDR 11:04 → ANHOB2 23:08
PROVIDERS: Admitting Provider Obstetrics & Gynecology; Visit Provider Obstetrics & Gynecology
DX: O99.824 Streptococcus B carrier state complicating childbirth (principal); Z37.0 Single live birth; Z3A.37 37 weeks gestation of pregnancy; O77.0 Labor and delivery complicated by meconium in amniotic fluid; O69.81X0 Labor and delivery complicated by cord around neck, without compression, not applicable or unspecified; O70.1 Second degree perineal laceration during delivery
CPT/HCPCS: 36415; 85025; 85027; 86593; 86850; 86900; 86901; 88307; A9270; J0290; J2590; J2795; J3010; J7120